=== PATIENT | female | born 2000 | race Caucasian/White ===

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

== ENCOUNTER → 2020-02-12 12:51 | Outpatient (CLI) | payer BC, SELFPAY ==
--- NOTE | ~2020-02-12 | XR_ITS ---
EXAMINATION: XR ankle LT min 3V, XR foot LT min 3V EXAM DATE: 02/12/2020 13:06 INDICATION: Initial encounter following injury, with pain of the left, ankle. TECHNIQUE: Left foot dorsoplantar, lateral and oblique projections obtained and reviewed. Left ankle frontal, lateral and oblique projections obtained and reviewed. Comparison is made to prior examinat ion from 04/06/2017. FINDINGS: Left metatarsal bones unremarkable. The left ankle mortise appears intact. Small sliver- like calcification along the lateral aspect of the calcaneal beak, age-indeterminate avulsion closed posttraumatic fracture. This finding has been indicated, marked on the examination for review, clinic al correlation. There is no subcutaneous gas. The soft tissue is unremarkable. Fibular tip screw s unchanged. IMPRESSION: Left calcaneal beak, anterolateral avulsion fracture, possibly acute. Clinical correlatio n. Reviewed, dictated and finalized at location A. LATION CUPOLA CHARGER IMPRESSION: Left calcaneal beak, anterolateral avulsion fracture, possibly acut e. Clinical correlation.
== END ==
PROVIDERS: PCP Pediatrics; Visit Provider Pediatrics
DX: S92.002A Unspecified fracture of left calcaneus, initial encounter for closed fracture (principal)
CPT/HCPCS: 73610; 73630

== ENCOUNTER 2024-11-23 15:12 | Outpatient (CLI) | payer OTHER, SELFPAY ==
--- NOTE | ~2024-11-23 | US_ITS ---
EXAMINATION: US OB <= 14 weeks fetus DATE: 11/23/2024 15:44 INDICATION: and conclusive viability TECHNIQUE: Real-time transabdominal and transvaginal obstetric ultrasound. FINDINGS: No prior studies for comparison. The uterus measures 14.5 x 6.3 x 9.5 cm. There is an intrauterine gestational sac, with pole identified. The crown rump length measures 7.45 cm, which correlates with a estimated gestational age of 13 weeks 4 days. heart tones are identified measuring 144. IMPRESSION: 1. SL IUP with an EGA of 13 weeks, 4 days (EDC by current ultrasound of 05/27/2025). Reviewed, dictated and finalized at location O. IMPRESSION: 1. SL IUP with an EGA of 13 weeks, 4 days (EDC by current ultrasound of 026).
== END 2024-11-23 15:13 | disposition home or self-care (01) ==
LOC: MICIMG 15:15
PROVIDERS: PCP Nurse Practitioner Family; Visit Provider Nurse Practitioner Family
DX: O36.80X0 Pregnancy with inconclusive fetal viability, not applicable or unspecified (principal); Z3A.00 Weeks of gestation of pregnancy not specified
CPT/HCPCS: 76801

== ENCOUNTER 2024-12-06 10:20 | Outpatient (CLI) | payer OTHER, SELFPAY ==
[2024-12-06 11:03] LABS: Hematocrit 38.8 % (37.0-47.0); Hemoglobin 12.9 g/dL (12.0-15.0); Mean Corpuscular HGB Conc 33.2 g/dl (32-36); Mean Corpuscular Hemoglobin 29.2 pg (26-34); Mean Corpuscular Volume 87.8 fl (80-100); Platelet Count Result 283 k/mm3 (150-375); Red Blood Count 4.42 M/mm3 (4.2-5.4); White Blood Count 11.4 K/mm3 (4.5-10.0)
[2024-12-06 11:46] LABS: Thyroid Stimulating Hormone 2.420 uIU/mL (0.465-4.680)
[2024-12-06 11:47] LABS: Syphilis IgG/IgM Antibody Non-Reactive (Nonreactive)
[2024-12-06 11:51] LABS: Hepatitis B Surface Antigen Negative (Negative)
[2024-12-06 11:56] LABS: HIV 1/2 Ab P24 Ag Result Negative (Negative)
[2024-12-06 15:56] LABS: Add Urine Microscopic? YES; Appearance Urine Cloudy (Clear); Glucose Urine UA Negative (Negative); Leukocyte Esterase Ur Trace LEU/UL (Negative); Nitrate Urine Negative (Negative); Non Pathogenic Casts 0-2; Specific Grav Ur 1.030 (1.001-1.035)
[2024-12-07 13:08] LABS: Alpha Thal Reflex Not indicated. (.); Ferritin 25 ng/mL (15-150); Hematocrit 40.6 % (34.0-46.6); Hemoglobin 13.1 g/dL (11.1-15.9); MCH 29.2 pg (26.6-33.0); MCHC 32.3 g/dL (31.5-35.7); MCV 90 fL (79-97); RBC 4.49 x10E6/uL (3.77-5.28); RDW 12.8 % (11.7-15.4); WBC 11.5 x10E3/uL (3.4-10.8)
[2024-12-07 15:09] LABS: Varicella-Zoster Ab, IgG Reactive (Non Reactive); Varicella-Zoster Ab, IgM <0.91 index (0.00-0.90)
== END 2024-12-06 10:21 | disposition home or self-care (01) ==
LOC: ANHLAB 10:21
PROVIDERS: Visit Provider Obstetrics & Gynecology
DX: Z34.90 Encounter for supervision of normal pregnancy, unspecified, unspecified trimester (principal)
CPT/HCPCS: 36415; 81001; 83020; 84443; 85027; 85660; 86593; 86703; 86762; 86787; 86803; 86850; 86900; 86901; 87340; G0432

== ENCOUNTER 2025-03-23 07:37 | Outpatient (CLI) | payer OTHER, SELFPAY ==
[2025-03-23 09:12] LABS: Hematocrit 30.1 % (37.0-47.0); Hemoglobin 9.7 g/dL (12.0-15.0); Mean Corpuscular HGB Conc 32.2 g/dl (32-36); Mean Corpuscular Hemoglobin 27.7 pg (26-34); Mean Corpuscular Volume 86.0 fl (80-100); Platelet Count Result 308 k/mm3 (150-375); Red Blood Count 3.50 M/mm3 (4.2-5.4); White Blood Count 11.5 K/mm3 (4.5-10.0)
[2025-03-23 09:34] LABS: Glucose 1 Hour PP 50gm Dose 125 mg/dL
[2025-03-23 10:01] LABS: Syphilis IgG/IgM Antibody Non-Reactive (Nonreactive)
[2025-03-23 10:14] LABS: HIV 1/2 Ab P24 Ag Result Negative (Negative)
== END 2025-03-23 07:38 | disposition home or self-care (01) ==
PROVIDERS: Visit Provider Nurse Practitioner Obstetrics & Gynecology
DX: Z34.90 Encounter for supervision of normal pregnancy, unspecified, unspecified trimester (principal); Z3A.00 Weeks of gestation of pregnancy not specified
CPT/HCPCS: 36415; 82947; 85027; 86593; 86703; G0432